=== PATIENT | female | born 1980 | race Caucasian/White ===

== ENCOUNTER 2021-01-06 12:02 | Outpatient (CLI) | payer MEDICAID | END 2021-01-06 23:59 | disposition home or self-care (01) | LOC: D.MAMMO 12:02 | PROVIDERS: ATTEND Obstetrics & Gynecology | DX: Z12.31 Encounter for screening mammogram for malignant neoplasm of breast (principal) ==

== ENCOUNTER 2021-04-05 17:20 | Emergency (ER) | payer MEDICAID ==
[~2021-04-05] VITALS: Ht 154.9 cm; Wt 70.9 kg
[2021-04-05 17:32] VITALS: Ht 154.9 cm; Wt 70.9 kg
[2021-04-05 23:10] VITALS: BP 140/93
== END 2021-04-05 23:16 | disposition home or self-care (01) ==
LOC: D.ER 17:20
DX: M25.511 Pain in right shoulder (principal); S46.911A Strain of unspecified muscle, fascia and tendon at shoulder and upper arm level, right arm, initial encounter; V49.88XA Car occupant (driver) (passenger) injured in other specified transport accidents, initial encounter